=== PATIENT | male | born 1975 | race Caucasian/White ===

== ENCOUNTER 2021-09-29 14:35 | Emergency (ER) | payer OTHER, BC ==
[2021-09-29] MEDS ORDERED: CYCLOBENZAPRINE10 MG PO (15:44)
[2021-09-29] MEDS ORDERED: IBU800 MG PO (15:44)
== END 2021-09-29 15:50 | disposition home or self-care (01) ==
LOC: ER1 14:35
DX: S09.92XA Unspecified injury of nose, initial encounter (principal); R51.9 Headache, unspecified; M54.2 Cervicalgia; X58.XXXA Exposure to other specified factors, initial encounter
CPT/HCPCS: 70160; 72040; 96372; 99283; J1885

== ENCOUNTER 2022-01-17 11:36 | Emergency (ER) | payer BC ==
[~2022-01-17 11:36] MED LIST: CYCLOBENZAPRINE10 MG PO; IBU800 MG PO
[2022-01-17] MEDS ORDERED: CEPHALEXIN500 MG PO (12:32)
[2022-01-17] MEDS ORDERED: BACTROBAN OINT22 GM EXT (12:32)
[2022-01-17] MEDS ORDERED: IBUPROFEN600 MG PO (12:34)
== END 2022-01-17 15:03 | disposition home or self-care (01) ==
LOC: ER1 11:36
DX: S92.422B Displaced fracture of distal phalanx of left great toe, initial encounter for open fracture (principal); S91.112A Laceration without foreign body of left great toe without damage to nail, initial encounter; Z23 Encounter for immunization; W20.8XXA Other cause of strike by thrown, projected or falling object, initial encounter
CPT/HCPCS: 73630; 90471; 90715; 96372; 99283; J0690

== ENCOUNTER → 2022-02-01 | Outpatient (CLI) | payer BC ==
[~2022-02-01] MED LIST changes: +BACTROBAN OINT22 GM EXT; +CEPHALEXIN500 MG PO; +IBUPROFEN600 MG PO
== END ==
LOC: KOH-I 15:32
DX: M79.675 Pain in left toe(s) (principal); S92.422A Displaced fracture of distal phalanx of left great toe, initial encounter for closed fracture
CPT/HCPCS: 73630